=== PATIENT | male | born 1980 | race Caucasian/White ===

== ENCOUNTER 2016-11-26 17:45 | Emergency (ER) | payer SELFPAY ==
[~2016-11-26] VITALS: Ht 162.6 cm; Wt 67.2 kg
[~2016-11-26 17:45] MED LIST: AMOXICILLIN500 MG OR; DARVOCET N-100100 - OR; MAGIC BULLET10 MG RE; MOTRIN600 MG OR; NO; NYSTATIN100000 M1 MT; PERCOCET 5/325M1 TAB PO; TYLENOL500 MG OR; ULTRAM50 MG OR; VEETIDS250 MG OR
[2016-11-26] MEDS ORDERED: PENICILLN VK500 MG PO (18:09)
[2016-11-26] MEDS ORDERED: LORTAB 5-325 MG1 TAB PO (18:09)
[2016-11-26 18:35] VITALS: BP 161/98
== END 2016-11-26 18:35 | disposition home or self-care (01) | DRG 159 ==
LOC: ED 17:45
DX: K08.89 Other specified disorders of teeth and supporting structures (principal); F17.210 Nicotine dependence, cigarettes, uncomplicated